=== PATIENT | female | born 1945 | race Caucasian/White ===

== ENCOUNTER 2016-06-25 23:16 | Inpatient (IN) ==
[2016-06-26 00:28] LABS: MANUAL DIFF NEEDED? NO
[2016-06-26 00:32] LABS: BASO% 0.2 % (0.0-0.8); EOS# 0.15 X1000 (0.0-0.7); EOS% 1.7 % (0.0-10.0); HEMATOCRIT 32.3 % (37.0-47.0); HEMOGLOBIN 10.3 g/dL (12.0-16.0); IMM GRAN# 0.01 X1000 (0.0-0.04); IMM GRAN% 0.1 % (0.0-0.5); LYMPH# 1.68 X1000 (1.2-3.4); LYMPH% 18.7 % (20.5-51.1); MCH 28.9 PG (27-31); MCHC 31.9 g/dL (33-37); MCV 90.5 FL (81-99); MONO# 0.93 X1000 (0.11-0.59); MONO% 10.4 % (1.7-9.3); MPV 11.9 FL (7.4-10.4); NEUT% 68.9 % (42.2-75.2); PLT 225 X1000 (130-400); RBC 3.57 XMIL (4.2-5.4)
[2016-06-26] MEDS ORDERED: ZOSYN 3.375 GM/NS 3.375 GM/50 ML IVPB IV ONE (00:35)
[2016-06-26] MEDS ORDERED: VANCOMYCIN 1 GM/NS 1 GM/250 ML IVPB IV ONE (00:35)
[2016-06-26 00:57] LABS: ALBUMIN 4.1 g/dL (3.5-5.0); CALCIUM 9.2 mg/dL (8.8-10.2); TOTAL BILIRUBIN 0.6 mg/dL (0.20-1.00); TOTAL PROTEIN 7.1 g/dL (6.3-8.3)
[2016-06-26] MEDS ORDERED: VANCOMYCIN IV PER PHARMACY MISC SCH (08:45)
[2016-06-26] MEDS: ZOSYN 3.375 GM/NS 3.375 GM/50 ML IVPB IV SCH ×3 (10:10→21:43)
[2016-06-26] MEDS ORDERED: ZOFRAN IV PRN (10:12)
[2016-06-26] MEDS ORDERED: NS 500 ML ONE (10:16)
[2016-06-26] MEDS ORDERED: NORCO-5 PO PRN (11:24)
[2016-06-26] MEDS: NORVASC PO SCH (12:53)
--- NOTE | 2016-06-26 14:06 | HISTORY AND PHYSICAL ---
CHIEF COMPLAINT: Left foot red and swollen. HISTORY OF PRESENT ILLNESS: This is a 71-year-old female with a history of diabetes mellitus, hyperlipidemia and hypertension, who presented to the emergency room complaining of increasing pain, redness, swelling and drainage to her left foot. She stated this started Friday with a blister under her second toe. It has increased over this time. Of note, she was seen in the emergency room on the for the same and, at that time, she was given Liberty for pain. The blister was manually debrided by the emergency room physician, and she was told to continue the Bactrim she had being given at the walk-in clinic earlier that day. Symptoms have increased, therefore she returned to the emergency room and she is being admitted for failed outpatient treatment. PAST MEDICAL HISTORY: Diabetes mellitus, hyperlipidemia, hypertension. PAST SURGICAL HISTORY: Hysterectomy and carpal tunnel surgery. SOCIAL HISTORY: She denies alcohol, tobacco, or illicit drug use. ALLERGIES: No known drug allergies. HOME MEDICATIONS: A list will be obtained. REVIEW OF SYSTEMS: A 14 point review of systems is discussed with patient with pertinent positives stated in the HPI. She denies chest pain, palpitations, dizziness, syncope, PND, orthopnea, productive cough, fever, chills, nausea, vomiting, diarrhea, constipation, black or bloody vomitus, black or bloody stools, hematuria, dysuria, frequency, urgency. PHYSICAL EXAMINATION: GENERAL: This is a 71-year-old female, who is sitting in the bed in no distress. HEENT: Head is normocephalic, atraumatic. Pupils equal, round, react to light. EOM's are intact. Sclerae anicteric. Mucous membranes are moist. NECK: Supple with trachea midline. CARDIOVASCULAR: Regular rate and rhythm. S1 and S2 appreciated. PULMONARY: Breath sounds are clear with no increased work of breathing noted. GASTROINTESTINAL: Abdomen is soft, nontender, nondistended with bowel sounds in all 4 quadrants. BACK: No CVAT. No spine tenderness. MUSCULOSKELETAL: Good range of motion to joints. EXTREMITIES: No clubbing, cyanosis, or edema to upper extremities or right lower extremity. Left lower extremity does have pitting edema to her foot, which is warm and erythematous. Pulses are palpable x4. Calves are nontender. NEUROLOGIC: She is alert and oriented x3. DIAGNOSTICS: WBC is 8.9, with a hemoglobin of 10.3, hematocrit 32.3 and platelets of 225. Sodium is 136, potassium 4, BUN 16, creatinine 1, with a glucose of 207. ASSESSMENT AND PLAN: 1. Diabetic ulcer to left foot. Failed outpatient treatment. 2. Cellulitis to the left foot. Failed outpatient treatment. 3. Diabetes mellitus with hyperglycemia. 4. Hyperlipidemia. 5. Hypertension. 6. Deep vein thrombosis prophylaxis and gastrointestinal prophylaxis. She will be admitted to the hospital. Blood cultures were drawn in the emergency room. We will continue vancomycin and Zosyn at present. We will consult the [facility]. We will identify and continue her home medications as appropriate. If she has any drainage to this foot, we will send a culture for Gram stain and C and S. Further treatments pending hospital course. Dictated by ROMAIN Perkins for Drew Gallardo MD cc: ROMAIN Perkins MD
[2016-06-26] MEDS: VANCOMYCIN 1 GM/NS 1 GM/250 ML IVPB IV SCH (17:25)
[2016-06-26] MEDS: GLUCOPHAGE XR PO SCH (17:25)
[2016-06-26] MEDS ORDERED: LIPITOR PO SCH (21:00)
[2016-06-26] MEDS: ZANAFLEX PO SCH (21:43)
[2016-06-26] MEDS: LANTUS INSULIN (PARKWAY) SUBQ SCH (21:43)
[2016-06-27] MEDS: ZOSYN 3.375 GM/NS 3.375 GM/50 ML IVPB IV SCH ×4 (03:31→20:56)
[2016-06-27 06:18] LABS: HEMOGLOBIN 10.1 g/dL (12.0-16.0); MCH 28.7 PG (27-31); MCHC 31.6 g/dL (33-37); MCV 90.9 FL (81-99); MPV 12.2 FL (7.4-10.4); RBC 3.52 XMIL (4.2-5.4)
[2016-06-27 06:36] LABS: CALCIUM 9.6 mg/dL (8.8-10.2)
[2016-06-27] MEDS ORDERED: INSULIN PEN NEEDLES ONE (09:28)
[2016-06-27] MEDS: GLUCOPHAGE XR PO SCH ×2 (09:32→17:22)
[2016-06-27] MEDS: LOTENSIN PO SCH (09:32)
[2016-06-27] MEDS: ICAR-C PO SCH (09:32)
[2016-06-27] MEDS: LOVENOX SUBQ SCH (09:32)
[2016-06-27] MEDS: VICTOZA SUBQ SCH (09:33)
[2016-06-27] MEDS: NORVASC PO SCH (09:35)
[2016-06-27] MEDS: ACTOS PO SCH (09:35)
--- NOTE | 2016-06-27 09:56 | Diag Imaging Result Document ---
PROCEDURE NAME: DAVON LOWER W/O CONTRAST - 06/26/2016 CT LEFT FOOT WITHOUT CONTRAST: TECHNIQUE: No contrast administered per request of the referring provider. Axial coronal sagittal images of the left foot, including the ankle, are obtained. No comparison exam. FINDINGS: There is calcaneal spurring at the plantar fascia and Achilles tendon insertions. There are mild degenerative changes elsewhere. There is a small sesamoid at the ventral margin of the interphalangeal joint of the great toe. There is mild deformity at the dorsal base of the distal phalanx of the great toe. This does not appear acute and may represent old fracture deformity. There is no acute appearing fracture identified. There is no dislocation seen. There are no discrete erosions identified. There are no destructive changes identified. IMPRESSION: 1. Calcaneal spurring. Mild degenerative changes. 2. Mild deformity of base of distal phalanx of great toe which may relate to old fracture deformity. No evidence of acute fracture or dislocation. 3. No evidence of osteomyelitis.
--- NOTE | 2016-06-27 11:43 | PROGRESS NOTE ---
DATE: 06/27/2016 SUBJECTIVE: The patient notes that her left lower extremity is much improved. Much less swelling and redness. She actually notes that she has a little bit of pain in it this morning when she was attempting to walk to the restroom. Denies any fevers or chills. Denies any other symptoms. PHYSICAL EXAMINATION: Vital Signs: Temperature 98, pulse 89, respiratory rate 20, blood pressure 111/56. Sat 98% on room air. General: Patient is awake, alert, oriented. She is currently in no real respiratory distress. She is pleasant to talk with. Speech is regular. Memory is intact. HEENT: Normocephalic. Neck: Supple. Cardiovascular: Regular rate. Chest: Relatively clear. Abdomen: Soft. Extremities: Moves all extremities. No edema. Neurologic: No focal changes. Skin: Warm and dry. She is noted to have much less erythema to the left lower extremity. Still has an ulcerative lesion on the bottom of her second digit on the left foot. LABORATORIES: CBC and CMP essentially normal. Glucose at 158 to 172. ASSESSMENT: 1. Diabetic foot ulceration, left foot. 2. Cellulitis left foot. 3. Diabetes with mild hyperglycemia, stable. 4. Hyperlipidemia. 5. Hypertension. PLAN: We will consult wound care for assistance. Discussed with Dr. Morales. I attempted to answer all of Ms. Chun daughter's questions this morning. The arterial Doppler is still pending. Will continue sliding scale insulin. Further orders as needed. We will continue her on vancomycin and Zosyn, as her foot is tremendously better this morning. cc: Drew Gallardo MD
[2016-06-27] MEDS: VANCOMYCIN 1 GM/NS 1 GM/250 ML IVPB IV SCH (17:22)
[2016-06-27] MEDS: SANTYL OINT TOP SCH (17:26)
[2016-06-27] MEDS ORDERED: NS 500 ML IV SCH (18:59)
[2016-06-27] MEDS: CUBICIN (FOR INPATIENT USE) 500 MG in NS 100 ML IV SCH (19:37)
[2016-06-27] MEDS: ZANAFLEX PO SCH (20:57)
[2016-06-27] MEDS: LANTUS INSULIN (PARKWAY) SUBQ SCH (20:57)
--- NOTE | 2016-06-27 21:40 | CONSULTATION ---
DATE OF CONSULTATION: 06/27/2016 CONCLUSION: Patient is admitted to the hospital with cellulitis of the left foot. There also appeared to be a small abscess which spontaneously drained on the plantar surface of the foot. RECOMMENDATIONS: I agree with placing the patient initially on vancomycin and Zosyn. Since the patient's creatinine has inched up a little bit, I would suggest now stopping vancomycin and treating with daptomycin. Because daptomycin has been ordered I have discontinued atorvastatin in order to avoid enhanced risk of muscle toxicity. Hopefully when the results of the culture from the foot is back and if the patient continues do better, hopefully we will be able to switch her to an oral antibiotic and let her go home. DISCUSSION: The patient approximately 1 week ago developed swelling of her left foot and then in a few days period it became very erythematous and almost fluctuant. Apparently she was seen in the emergency room one time and then had been admitted to the hospital. Here her CBC shows a white count of 7180, hemoglobin 10.1, platelet count 217,000, creatinine is 1.1 , GFR is 49, liver function studies are normal. A CT scan of the foot showed no osteomyelitis. The blood cultures and culture from the left foot are pending. PAST MEDICAL HISTORY/REVIEW OF SYSTEMS: Eyes and ears: She denies difficulty hearing or seeing. Neck: No stiffness. Respiratory: No cough or shortness of breath. Cardiovascular: No chest pain or palpitations. Gastrointestinal: No nausea, vomiting, or diarrhea. Genitourinary: No dysuria or flank pain. Neurologic: No seizures, motor or sensory loss. Endocrine: Patient has diabetes but she does not have thyroid disease. Bones, joints, muscles: Other than the left foot, the patient has not been having pain in her joints and has not been noticing any swelling of her joints except in the left foot which is the infected when. The remainder of the patient's review of systems was completed and was negative [employer]ISH MEDICAL INTERPRETER history: She is a 2, para 2, AB 0. PREVIOUS HOSPITALIZATIONS AND OPERATIONS: She had labor and deliveries, hysterectomy, and carpal tunnel surgery. MEDICAL HISTORY: Positive for diabetes mellitus, hyperlipidemia and hypertension. INFECTIOS DISEASES: negative for pneumonia and UTI. SOCIAL HISTORY: She is a . She does not smoke cigarettes, drink alcoholic beverages or abuse drugs. ALLERGIES: She has no known drug allergies. SOCIAL HISTORY: She does not have any pets at home. MEDICATIONS: Transderm, scope, Zanaflex, ibuprofen, Lipitor, hydrocodone, amlodipine/benazepril, insulin, Actos, Fortamet and Victoza. PHYSICAL EXAMINATION: Vital Signs: Temperature is 98.1 degrees, pulse 85, respirations 18, blood pressure 128/54. Patient weighs 165 pounds. General: This is a fairly healthy -appearing, elderly female. She is in no acute distress. Head, eyes, ears, nose, and throat: She is wearing dentures. She can hear my spoken words and see near objects. No drainage noted from the nose or ears. Neck: No meningismus. Thorax: No increased AP diameter to the chest. Lungs: Clear to auscultation. Cardiovascular: Heart rate is regular. Peripheral pulses are palpable. Abdomen: Soft and nontender. Extremities: The patient's left foot is erythematous and swollen but much less so than it had been. On the plantar surface there is an area where there was a fluid collection which drained out and now there is just skin that has collapsed that had the drainage in it. I think it was probably a small abscess that spontaneously drained. Neurologic: Patient is awake. She can move her extremities. There is no tremor. Her sensation was intact to touch. Her memory as regarding her medical history was intact. Integumentary: No rash noted. Thank you for the consultation. cc: Karl Morales MD [facility]
[2016-06-28] MEDS: ZOSYN 3.375 GM/NS 3.375 GM/50 ML IVPB IV SCH ×3 (03:12→18:33)
--- NOTE | 2016-06-28 03:41 | CONSULTATION ---
DATE OF CONSULTATION: 06/27/2016 ADDENDUM REPORT INFECTIOUS DISEASE HISTORY: Negative for pneumonia and urinary tract infection. cc: Karl Morales MD
[2016-06-28] MEDS: LOTENSIN PO SCH (10:02)
[2016-06-28] MEDS: LOVENOX SUBQ SCH (10:02)
[2016-06-28] MEDS: ICAR-C PO SCH (10:02)
[2016-06-28] MEDS: GLUCOPHAGE XR PO SCH ×2 (10:02→18:33)
[2016-06-28] MEDS: ACTOS PO SCH (10:02)
[2016-06-28] MEDS: NORVASC PO SCH (10:02)
[2016-06-28] MEDS: SANTYL OINT TOP SCH (10:03)
[2016-06-28] MEDS: VICTOZA SUBQ SCH (10:03)
--- NOTE | 2016-06-28 11:54 | VASCULAR LAB ---
PROCEDURE NAME: Arterial Bilateral Legs - 06/27/2016 REQUESTING PHYSICIAN: ROMAIN Rosen. FLORAL MANAGER: Jonh. TEST INDICATIONS: Wounds on the left 2nd toe. SEGMENTAL PRESSURES: Right brachial 122, left 115. Right proximal thigh 157, left 152. Right distal thigh 143, left 140. Right popliteal 151, left 135. Right dorsalis pedis 117, left 117. Right posterior tibial 121, left 109. Right toe 85, left 69. Right YUMIKO 0.99, left 0.96. Right TBI 0.70, left 0.57. WAVEFORM ANALYSIS: Waveforms appear to be intact to the level of the bilateral toes. There appears to be at least a monophasic waveform noted to the bilateral toes. INTERPRETATION: Perfusion noted to bilateral lower extremities. Given the monophasic waveforms, this should be somewhat adequate for wound healing. Patient likely has some degree of peripheral vascular disease bilaterally with the demonstration in monophasic waveforms bilaterally. cc: MD Wilda Muñiz CRNP
--- NOTE | 2016-06-28 14:57 | PROGRESS NOTE ---
DATE: 06/28/2016 SUBJECTIVE: The patient states that her left lower extremity has improved even more. She has no swelling or redness. She has a little bit of pain with weightbearing. She still has intermittent drainage. She denies fever or chills. OBJECTIVE: Vital Signs: Blood pressure is 137/55 with a heart rate of 90, respirations are 18, temperature is 99 degrees oral, with room air saturations of 97 to 99%. Cardiovascular: Regular rate and rhythm. S1, S2 appreciated. Pulmonary: Breath sounds are clear. No increased work of breathing noted. Gastrointestinal: Abdomen is soft, nontender, nondistended, with bowel sounds in all 4 quadrants. Extremities: No clubbing, cyanosis, or edema. Calves are nontender. Pulses are palpable x4. Dressing is dry and intact to her left foot. ASSESSMENT.: 1. Diabetic foot ulcer. 2. Cellulitis left foot. 3. Diabetes with mild hyperglycemia. Stable. 4. Hyperlipidemia. 5. Hypertension. We will continue with her current regimen. Dressing changes per wound care instructions. Continue vancomycin and Zosyn. Hopefully, she can go home in the next 1-2 days. Dictated by ROMAIN Perkins for Drew Gallardo MD cc: ROMAIN Perkins MD
[2016-06-28] MEDS: LANTUS INSULIN (PARKWAY) SUBQ SCH (20:26)
[2016-06-28] MEDS: ZANAFLEX PO SCH (20:26)
[2016-06-28] MEDS: CUBICIN (FOR INPATIENT USE) 500 MG in NS 100 ML IV SCH (20:26)
[2016-06-29] MEDS: ZOSYN 3.375 GM/NS 3.375 GM/50 ML IVPB IV SCH ×4 (02:09→17:53)
[2016-06-29 06:20] LABS: HEMATOCRIT 33.7 % (37.0-47.0); HEMOGLOBIN 10.4 g/dL (12.0-16.0); MCH 27.9 PG (27-31); MCHC 30.9 g/dL (33-37); MCV 90.3 FL (81-99); MPV 12.1 FL (7.4-10.4); RBC 3.73 XMIL (4.2-5.4)
[2016-06-29 06:40] LABS: ALBUMIN 3.8 g/dL (3.5-5.0); CALCIUM 9.5 mg/dL (8.8-10.2); POTASSIUM 4.2 mmol/L (3.5-5.1); TOTAL BILIRUBIN 0.5 mg/dL (0.20-1.00); TOTAL PROTEIN 6.9 g/dL (6.3-8.3)
[2016-06-29] MEDS: GLUCOPHAGE XR PO SCH ×2 (08:01→17:43)
[2016-06-29] MEDS: LOTENSIN PO SCH (09:08)
[2016-06-29] MEDS: ACTOS PO SCH (09:08)
[2016-06-29] MEDS: ICAR-C PO SCH (09:08)
[2016-06-29] MEDS: NORVASC PO SCH (09:09)
[2016-06-29] MEDS: LOVENOX SUBQ SCH (09:09)
[2016-06-29] MEDS: VICTOZA SUBQ SCH (09:09)
[2016-06-29] MEDS: SANTYL OINT TOP SCH (09:09)
--- NOTE | 2016-06-29 11:49 | PROGRESS NOTE ---
DATE: 06/29/2016 SUBJECTIVE: The patient notes the foot feels tremendously better. She is actually having a little bit of pain but is decreased. Denies any recent drainage. Notes the swelling and erythema is also better. OBJECTIVE: Vital Signs: Reviewed, she is afebrile. Temperature 98 degrees, pulse 85, respiratory rate 18, blood pressure 130/57, saturating 100% on room air. General: Patient is awake, alert, oriented. She is currently in no respiratory distress. Pleasant to talk with. Speech is regular. Memory is intact. Neck: Supple. CV: Regular rate. Chest: Relatively clear. Lower Extremities: Left lower erythema has all but completely disappeared. The swelling has all but completely disappeared. She still has a small eschar noted on her 2nd digit at the base. No pus. No drainage. DIAGNOSTIC DATA: CBC and CMP essentially normal. Glucose 128, micro is growing gram-positive cocci with no sensitivities currently. ASSESSMENT: 1. Diabetic foot ulcer. 2. Gram-positive cocci. Continue current IV antibiotics until sensitivities have resolved. She is noted to have arterial Dopplers which were okay and should allow good wound healing per surgery. 3. Cellulitis left lower extremity secondary to the foot ulceration has improved. 4. Diabetes with hyperglycemia stable. 5. Hyperlipidemia. 6. Hypertension. PLAN: We will continue to follow. Hopefully home in the next 1-2 days if she is sensitive to oral antibiotics. cc: Drew Gallardo MD
[2016-06-29] MEDS: CUBICIN (FOR INPATIENT USE) 500 MG in NS 100 ML IV SCH (21:08)
[2016-06-29] MEDS: ZANAFLEX PO SCH (21:09)
[2016-06-29] MEDS: LANTUS INSULIN (PARKWAY) SUBQ SCH (21:09)
[2016-06-30] MEDS: ZOSYN 3.375 GM/NS 3.375 GM/50 ML IVPB IV SCH ×2 (01:11→06:20)
[2016-06-30] MEDS: GLUCOPHAGE XR PO SCH (08:46)
[2016-06-30] MEDS: ICAR-C PO SCH (09:11)
[2016-06-30] MEDS: ACTOS PO SCH (09:11)
[2016-06-30] MEDS: LOVENOX SUBQ SCH (09:11)
[2016-06-30] MEDS: LOTENSIN PO SCH (09:11)
[2016-06-30] MEDS: NORVASC PO SCH (09:11)
[2016-06-30] MEDS: VICTOZA SUBQ SCH (09:11)
[2016-06-30] MEDS: SANTYL OINT TOP SCH (09:12)
[2016-06-30 12:23] VITALS: BP 122/75
[2016-06-30] MEDS ORDERED: LANTUS INSULIN (PARKWAY) SUBQ SCH (21:00)
--- NOTE | 2016-07-01 04:49 | DISCHARGE SUMMARY ---
ADMISSION DATE: 06/26/2016 DISCHARGE DATE: 06/30/2016 DISCHARGE DIAGNOSES: 1. Methicillin resistant staph aureus cellulitis to wound left second digit on her left foot. 2. Diabetes with mildly poor control at home with an A1c of 8.0. 3. Hyperlipidemia. 4. Hypertension. 5. Diabetic foot ulceration. 6. Peripheral vascular disease. CONSULTATIONS: Karl Morales MD with Infectious Disease. PROCEDURES: None. BRIEF HOSPITAL COURSE: Patient is a 71-year-old female who notes she has had diabetes for over 30 years. She was admitted to the hospital. Initially placed on vancomycin and Zosyn. She continued to improve. She had lots of swelling and erythema of her entire foot, up to just above her ankle on the left. After a few days of antibiotics, she noted that the pain started to increase and she had a dramatic improvement in her left foot. The redness and swelling almost completely disappeared. By discharge, the pain was resolved. Swelling and redness of her left foot had resolved. She had no drainage to the small eschar on her second digit of her left foot. Culture grew methicillin-resistant Staphylococcus aureus that was sensitive to clindamycin, Bactrim, and tetracycline. Thankfully, she had an uneventful hospital course. Did discuss with her that her blood sugar was mildly elevated while she was in the hospital and therefore will increase her Lantus from 25-27 units. Discussed with her every 2 days above 200 to increase by 2 units. She had a mild elevation in her kidney function that was easily corrected by switching from vancomycin to daptomycin. DISPOSITION: The patient will be discharged home. She will increase her Lantus to 27 units. She will continue her other home medications. We will discharge her home on doxycycline, given that is highly sensitive to her wound. She will followup in the morning with Dr. Palomares. She will followup as needed with Dr. Chavez. Wound care will be arranged by Dr. Palomares. TIME SPENT: Thirty-five minutes was spent in discharge planning. cc: MD Mu Caballero, [facility]
--- NOTE | 2016-07-03 23:59 | PROVIDER DOCUMENTATION ---
This chart was entered by Sherrell Marques Scribe, acting as scribe for Jarred Christopher MD. HPI-Musculoskeletal Pain/Inj - GENERAL Chief Complaint: Extremity Pain Stated Complaint: SWOLLEN FOOT/DIABETIC Time Seen by Provider: 06/25/16 23:52 Source: patient - HX OF PRESENT ILLNESS-MUSKULOSKELTAL Nature of Presenting Problem: PT IS A 71YOF PRESENTING TO THE ED C/O LEFT FOOT PAIN. PT STATES SHE WAS SEEN IN 2 DIFFERENT MEDICAL OFFICES AND HAS BEEN TREATED FOR A BLISTER ON THE BOTTOM OF HER LEFT 2ND TOE THAT HAS BECOME INFECTED AND SHE HAS PAIN, REDNESS, AND EDEMA JUST PAST HER ANKLE. PT DOESN'T HAVE ANY STREAKING AT THIS TIME BUT PT HAS HAD 2 ANTIBIOTIC SHOOTS AND PUT ON BACTRIUM AND LEVAQUIN BUT NO IMPROVEMENT OF SYMPTOMS AT THIS TIME. Quality of Pain: reports: aching, throbbing Severity in ED: moderate Onset/Duration: 4 days ago Timing: still present Modifying Factors: improves with: nothing Any recent injury?: No Locality of Occurance: Home Similar Symptoms Previously?: Yes Recently seen or treated by another doctor?: Yes Review of Systems - Adult - REVIEW OF SYSTEMS - ADULT Constitutional: reports: no symptoms reported Eyes: reports: no symptoms reported Ears, Nose, Mouth & Throat: reports: no symptoms reported Cardiovascular: reports: no symptoms reported Respiratory: reports: no symptoms reported Gastrointestinal: reports: no symptoms reported Genitourinary: reports: no symptoms reported Musculoskeletal: reports: see HPI, joint pain, joint swelling. denies: neck pain Integumentary: reports: no symptoms reported Neurological: reports: no symptoms reported Psychiatric: reports: no symptoms reported Endocrine: reports: no symptoms reported Hematologic/Lymphatic: reports: no symptoms reported Allergic/Immunologic: reports: no symptoms reported All Other Systems: Reviewed and Negative Past History - Adult - PAST MEDICAL HISTORY-ADULT Review of Records: reports: Old Records Reviewed, Nursing Assessment Review, Medications Reviewed, Social history reviewed & non-contributory. Major Childhood Illnesses: reports: denies history Cardiovascular: reports: HTN, hyperlipidemia Respiratory: reports: denies history Gastrointestinal: reports: denies history Obstetrical/Gynecological: reports: denies history Genitourinary: reports: denies history Musculoskeletal: reports: denies history Neurological: reports: denies history Endocrine/Immune: reports: Diabetes Other Conditions: reports: denies history - PRIOR SURGERIES/PROCEDURES Surgical/Procedure History: reports: hysterectomy, orthopedic (extremity) - IMMUNIZATION STATUS Childhood Immunizations: See Nurse Assessment Flu Vaccine: See Nurse Assessment - FAMILY HISTORY Family History: reviewed, not pertinent - SOCIAL HISTORY Smoking: denies, non-smoker Substance Use: none/never, denies Alcohol Use Frequency: never Living Situation: family Physical Exam-Injury Related - Physical Exam-Injury Related Initial Vital Signs Reviewed: Yes General Appearance: appears well, alert, moderate distress, obese, anxious Eyes: PERRL/EOMI, pink conjunctivae, fundi clear, no AV nicking Head, Ears, Nose, Mouth & Throat: normocephalic/atraumatic, moist mucous membranes, normal ENT inspection, TMs normal, pharynx normal Neck: non-tender, full range of motion, supple, normal inspection Respiratory: chest non-tender, lungs clear, normal breath sounds, no pleuratic chest pain, no respiratory distress, no accessory muscle use Cardiovascular: normal peripheral pulses, regular rate, rhythm, no edema, no gallop, no JVD, no murmur Abdominal Exam: normal bowel sounds, non tender, soft, no organomegaly, no pulsatile mass Lymphatic: no adenopathy Back Exam: normal inspection, no CVA tenderness, no vertebral tenderness Extremity: no calf tenderness, pelvis stable, erythema, inflammation, pedal edema, slow capillary refill (LEFT ANKLE AND FOOT), swelling, tenderness. negative: normal range of motion, non-tender, normal gait, normal inspection, no pedal edema, normal capillary refill Integumentary: normal color, warm/dry Neurologic: refund specialist II-XII nml as tested, grossly normal, no motor/sensory deficits Psych/Mental Status: normal mood/affect, normal thought content, normal thought process, oriented x 3 - Glascow Coma Score Best Eye Response ([place]): (4) open spontaneously Best Verbal Response ([place]): (5) oriented Best Motor Response ([place]): (6) obeys commands Progress - PLAN OF CARE/RESULTS Progress/Plan/Lab Results: Orders Category Date Time Status Admit - [facility] Routine AdmDCTranf 06/26/16 01:20 Ordered Activity - Bed Rest with BRP ORDERED Care 06/26/16 01:20 Active Call Admitting on Arrival AT ADMISSION Care 06/26/16 01:21 Completed Saline Loc DIRECTED Care 06/26/16 01:20 Completed Vital Signs Order ARRIVAL TO ROOM Care 06/26/16 01:20 Completed Diabetic Diet Diet 06/26/16 01:21 Completed BLOOD CULTURE [BLDCUL] Stat Lab 06/26/16 00:45 Completed CBC WITH ELECTRONIC DIFF [HEME] Stat Lab 06/26/16 00:15 Completed CMP [COMPREHENSIVE METABOLIC PANEL] [CHEM] Stat Lab 06/26/16 00:15 Completed LACTATE, PLASMA [CHEM] Stat Lab 06/26/16 00:15 Completed Piperacil/Tazobact 3.375 gm/Ns [Zosyn 3.375 gm/Ns] Med 06/26/16 00:35 Discontinued 3.375 gm in 50 ml IV NOW Vancomycin 1 gm/Ns Med 06/26/16 00:35 Discontinued 1 gm in 250 ml IV NOW Transfer/Admit Order [TRANSFER] Routine Transfer 06/26/16 01:21 Completed Result Diagrams: 06/29/16 05:08 06/29/16 05:08 Departure - Departure Time of Disposition Decision: 23:59 DIAGNOSIS: Cellulitis Qualifiers: Site of cellulitis of extremity: lower extremity Laterality: left Disposition: ADMITTED INPATIENT 09 Certified Medical Emergency: Emergent Condition: Good - Critical Care Note This patient required my direct personal management.: No This chart was documented by the indicated scribe, (Sherrell Marques Scribe) and accurately reflects the services I performed and decisions made by me, Jarred Christopher MD, as attested by the provider's signature.
== END 2016-06-30 13:25 | disposition home or self-care (01) ==
LOC: P.ED 23:16 → SUATTDRO 06-26 02:02 → P.MEDSURG 06-26 02:02
PROVIDERS: ATTEND Family Medicine